=== PATIENT | male | born 1980 | race Caucasian/White ===

== ENCOUNTER 2018-06-14 08:55 | Emergency (ER) | payer BC, OTHER ==
[2018-06-14 09:38] VITALS: BP 145/87
--- NOTE | 2018-06-14 10:03 | UC ---
Throat Pain/Nasal Abelino HPI - HPI Summary HPI Summary: 38-year-old male presents stating approximately 10 days ago developed nasal congestion, clear nasal drainage, sinus pressure, occasional nonproductive cough. States symptoms have been improving however 2 days ago developed worsening of the nasal congestion with yellow nasal discharge, increased sinus pressure, bilateral eye redness with some purulent drainage from the left eye, shortness of breath, and chest tightness with wheezing. Denies fever, chills, ear pain, visual disturbances, ear pain or drainage, sore throat, chest pain, abdominal pain, nausea, or vomiting. Patient states that as a child he was treated for asthma with a albuterol nebulizer and inhaler however has not needed as an adult. - History of Current Complaint Chief Complaint: UCEye Stated Complaint: BILATERAL EYE COMPLAINT/SINUS COUGH CONGESTION Time Seen by Provider: 06/14/18 09:59 Hx Obtained From: Patient Onset/Duration: Gradual Onset, Lasting Days - 10 Pain Intensity: 0 Cough: Nonproductive Associated Signs & Symptoms: Positive: Wheezing, Sinus Discomfort, Nasal Discharge. Negative: Dysphagia, Drooling, Hoarseness, Fever, Vomiting - Allergies/Home Medications Allergies/Adverse Reactions: Allergies Allergy/AdvReac Type Severity Reaction Status Date / Time fish food product Allergy eye Uncoded 06/14/18 09:40 swelling, chest tightness Home Medications: Home Medications Dextromethorphn/Acetaminoph/Cp [Vicks Nyquil Cold & Flu N] 1 liq PO BEDTIME [History Confirmed 06/14/18] PMH/Surg Hx/FS Hx/Imm Hx Previously Healthy: Yes Respiratory History: Asthma - Surgical History Surgical History: Yes Surgery Procedure, Year, and Place: cholecystectomy, appendix 2013; asthma sx - Family History Family History: Noncontributory - Social History Occupation: Employed Full-time Lives: With Family Alcohol Use: Weekly Alcohol Amount: 6-12 beers Substance Use Type: Excessive Caffeine Smoking Status (MU): Never Smoked Tobacco Review of Systems Constitutional: Negative Skin: Negative Eyes: Drainage, Eye Redness Respiratory: Shortness Of Breath, Cough Cardiovascular: Negative Gastrointestinal: Negative Is Patient Immunocompromised?: No All Other Systems Reviewed And Are Negative: Yes Physical Exam Triage Information Reviewed: Yes Appearance: Well-Appearing, No Pain Distress, Well-Nourished Vital Signs: Initial Vital Signs Temp 98.3 F 10/17/18 09:23 Pulse 98 06/14/18 09:23 Resp 20 06/14/18 09:23 BP 145/87 06/14/18 09:23 Pulse Ox 98 06/14/18 09:23 Vital Signs Reviewed: Yes Eyes: Positive: Conjunctiva Inflamed, Discharge - purulent drainage left eye ENT: Positive: Nasal congestion, Nasal drainage, TMs normal, Sinus tenderness - maxillary, Uvula midline. Negative: Pharyngeal erythema, Tonsillar swelling, Tonsillar exudate, Trismus, Muffled voice, Hoarse voice Respiratory: Positive: Chest non-tender, Lungs clear, Normal breath sounds, No respiratory distress Cardiovascular: Positive: RRR, No Murmur Neurological: Positive: Alert Skin Exam: Normal Throat Pain/Nasal Course/Dx - Course Course Of Treatment: 38-year-old male presents with 10 day history of sinus symptoms that were improving but over the last 2 days have progressively worsened and he is now having bilateral eye redness and drainage from the left eye. His history and exam are consistent with a acute sinusitis and bilateral conjunctivitis that is likely a secondary bacterial infection. He does report a history of asthma-like symptoms as a child and it sounds he is having some reactive airway disease with this infection even though his lung sounds were clear on exam. Will treat with a ten-day course of Augmentin, fluticasone nasal spray, saline rinses, and I will provide him with an albuterol inhaler to use as needed. He is to follow-up with his primary care provider if symptoms do not improve. - Differential Dx/Diagnosis Provider Diagnoses: Acute maxillary sinusitis, bilateral bacterial conjunctivitis, elevated blood pressure reading Discharge - Sign-Out/Discharge Documenting (check all that apply): Patient Departure All imaging exams completed and their final reports reviewed: No Studies - Discharge Plan Condition: Stable Disposition: HOME Prescriptions: Albuterol HFA INHALER* [Ventolin HFA Inhaler*] 2 puff INH Q6H PRN #1 mdi PRN Reason: Shortness Of Breath Amoxicillin/Potassium Clav [Amox-Clav 250-125 mg Tablet] 1 each PO BID #20 tablet Fluticasone NASAL SPRAY 50MCG* [Flonase NASAL SPRAY 50MCG*] 2 spray BOTH NARES DAILY #1 btl Patient Education Materials: Sinusitis (ED), Conjunctivitis (ED) Forms: *Work Release Referrals: Elo Dobson [Primary Care Provider] - Additional Instructions: You been prescribed an antibiotic called Augmentin for your sinus and eye infection. Take 1 tablet twice a day for 10 days. Be sure to take with some food to avoid stomach upset. Importantly finish the entire prescription even if you're feeling better. Start fluticasone (Flonase) 2 sprays each nostril once daily. Recommend using a saline rinse can't such as Netti Pot or NeilMed twice daily to help thin secretions and promote drainage. I have also provided you with a prescription for an albuterol inhaler to use. Take 2 puffs every 4-6 hours as needed for shortness of breath or wheezing. Do not wear her contacts until you've finished the entire antibiotic prescription. Be sure to use a brand-new pair of contacts when he start using again. Your blood pressure was elevated in the clinic today. It is recommended that you follow up with your primary care provider within the next 4 weeks to have this rechecked. Follow-up sooner if your symptoms persist for more than 7 days. - Billing Disposition and Condition Condition: STABLE Disposition: Home - Attestation Statements Provider Attestation: I was available for consult. This patient was seen by the TAM. The patient was not presented to, seen by, or examined by me. -Pat
== END 2018-06-14 10:27 | disposition home or self-care (01) ==
LOC: UCCORT 08:55
DX: J01.00 Acute maxillary sinusitis, unspecified (principal); H10.89 Other conjunctivitis; R03.0 Elevated blood-pressure reading, without diagnosis of hypertension
CPT/HCPCS: 99202; G0463